=== PATIENT | female | born 1985 | race Hispanic/Latino ===

== ENCOUNTER 2022-06-04 14:04 | Emergency (ER) | payer BC ==
[2022-06-04] MEDS ORDERED: HYDROCODONE/APAP 10/325 TAB ONE (16:01)
--- NOTE | 2022-06-04 16:48 | RAD REPORT ---
EXAM DESCRIPTION: RAD - Foot Left 3 View - 06/04/2022 4:38 pm CLINICAL HISTORY: Pain COMPARISON: No comparisons FINDINGS/IMPRESSION: No acute fracture. No malalignment. No significant focal degenerative changes.
--- NOTE | 2022-06-04 16:50 | ER ---
Nurse's Notes [facility] [place] Name: Barby Rees Age: 36 yrs Sex: Female : 1985 Arrival Date: 06/04/2022 Time: 14:06 Bed DIS3 Private MD: Diagnosis: Contusion of left foot Presentation: 06/04 15:45 Chief complaint: Patient states: Moving cabinets and one fell onto Left foot, stated vg1 weight of cabinet about 60#. Left foot appears to be swollen and bruised. Coronavirus screen: Vaccine status: Patient reports being unvaccinated. Client denies travel out of the [place] in the last 14 days. Ebola Screen: Patient negative for fever greater than or equal to 101.5 degrees Fahrenheit, and additional compatible Ebola Virus Disease symptoms. Initial Sepsis Screen: Does the patient meet any 2 criteria? No. Patient's initial sepsis screen is negative. Does the patient have a suspected source of infection? No. Patient's initial sepsis screen is negative. Risk Assessment: Do you want to hurt yourself or someone else? Patient reports no desire to harm self or others. Onset of symptoms was June 04, 2022. 15:45 Method Of Arrival: Wheelchair vg1 15:45 Acuity: LAINA 4 vg1 Triage Assessment: 15:46 General: Appears uncomfortable, Behavior is cooperative. Pain: Complains of pain in vg1 left foot Pain currently is 7 out of 10 on a pain scale. Pain began 2 hours ago. Musculoskeletal: Capillary refill < 3 seconds, in bilateral toes. Swelling present in left foot. 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 - Social history:: Smoking status: Patient denies any tobacco usage or history of. Screenin:15 Abuse screen: Denies threats or abuse. Denies injuries from another. Nutritional ss screening: No deficits noted. Tuberculosis screening: Never had TB. Fall Risk None identified. Assessment: 17:15 General: Appears in no apparent distress. Pain: Complains of pain in left foot. Neuro: ss Level of Consciousness is awake, alert, obeys commands. Respiratory: Airway is patent Respiratory effort is even, unlabored, Respiratory pattern is regular, symmetrical. Derm: Skin is intact, is healthy with good turgor, Skin is pink, warm \T\ dry. normal. Musculoskeletal: Swelling present in left foot. Vital Signs: 15:45 BP 109 / 71; Pulse 72; Resp 16; Temp 98.2; Pulse Ox 100% ; Weight 81.65 kg; Height 5 vg1 ft. 4 in. (162.56 cm); Pain 7/10; 15:45 Body Mass Index 30.90 (81.65 kg, 162.56 cm) vg1 ED Course: 14:06 Patient arrived in ED. as 15:45 Devon Thornton is PHCP. jl9 15:45 Eduin Dawkins MD is Attending Physician. jl9 15:46 Triage completed. vg1 15:46 Arm band placed on. vg1 16:40 Foot Left 3 View XRAY In Process Unspecified. EDMS 16:53 Ritika Lion, RN is Primary Nurse. ss 17:15 Patient has correct armband on for positive identification. Bed in low position. ss 17:15 No provider procedures requiring assistance completed. Patient did not have IV access ss during this emergency room visit. Administered Medications: 16:03 Drug: Surveyor (HYDROcodone-acetaminophen) 10 mg-325 mg 1 tabs Route: PO; ss Medication: 17:15 VIS not applicable for this client. ss Outcome: 16:50 Discharge ordered by . jl9 17:15 Discharged to home via wheelchair. ss 17:15 Condition: good 17:15 Discharge instructions given to patient. 17:15 Instructed on discharge instructions, follow up and referral plans. medication usage, Demonstrated understanding of instructions, follow-up care, medications, Prescriptions given X 1. 17:51 Patient left the ED. ss Signatures: Dispatcher [employer] EDMS May Crouch Shelby, RN RN ss Alicia Parmar RN RN vg1 Devon Thornton jl9
--- NOTE | 2022-06-04 16:50 | EDPHYS ---
Physician Documentation [facility] Name: Barby Rees Age: 36 yrs Sex: Female : 1985 Arrival Date: 06/04/2022 Time: 14:06 Bed DIS3 Private MD: ED Physician Eduin Dawkins HPI: 06/04 16:46 This 36 yrs old Female presents to ER via Wheelchair with complaints of Crush jl9 Injury To Foot. Patient reports having a cabinet fall onto her foot while moving it. . 16:46 The patient presents with pain, swelling. The complaints affect the left foot. Context: jl9 The problem was sustained at home, resulted from a heavy object falling, the patient can partially bear weight, the patient is able to ambulate. Onset: The symptoms/episode began/occurred just prior to arrival. Modifying factors: The symptoms are alleviated by nothing, the symptoms are aggravated by movement. Associated signs and symptoms: The patient has no apparent associated signs or symptoms. Severity of symptoms: in the emergency department the symptoms a " 5" out of "10". 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 - Social history:: Smoking status: Patient denies any tobacco usage or history of. ROS: 16:47 MS/extremity: Positive for pain, swelling. jl9 16:47 Constitutional: Negative for fever, chills, and weight loss, Eyes: Negative for injury, pain, redness, and discharge, ENT: Negative for injury, pain, and discharge, Neck: Negative for injury, pain, and swelling, Cardiovascular: Negative for chest pain, palpitations, and edema, Respiratory: Negative for shortness of breath, cough, wheezing, and pleuritic chest pain, Abdomen/GI: Negative for abdominal pain, nausea, vomiting, diarrhea, and constipation, Back: Negative for injury and pain, : Negative for injury, bleeding, discharge, and swelling, Skin: Negative for injury, rash, and discoloration, Neuro: Negative for headache, weakness, numbness, tingling, and seizure, Psych: Negative for depression, anxiety, suicide ideation, homicidal ideation, and hallucinations, Allergy/Immunology: Negative for hives, rash, and allergies, Endocrine: Negative for neck swelling, polydipsia, polyuria, polyphagia, and marked weight changes, Hematologic/Lymphatic: Negative for swollen nodes, abnormal bleeding, and unusual bruising. Exam: 16:48 Constitutional: This is a well developed, well nourished patient who is awake, alert, jl9 and in no acute distress. Head/Face: Normocephalic, atraumatic. Eyes: Pupils equal round and reactive to light, extra-ocular motions intact. Lids and lashes normal. Conjunctiva and sclera are non-icteric and not injected. Cornea within normal limits. Periorbital areas with no swelling, redness, or edema. ENT: Mucous membranes moist. Neck: Trachea midline, no thyromegaly or masses palpated, and no cervical lymphadenopathy. Supple, full range of motion without nuchal rigidity, or vertebral point tenderness. No Meningismus. Chest/axilla: Normal chest wall appearance and motion. Nontender with no deformity. No lesions are appreciated. Cardiovascular: Regular rate and rhythm with a normal S1 and S2. No gallops, murmurs, or rubs. Normal PMI, no JVD. No pulse deficits. Respiratory: Lungs have equal breath sounds bilaterally, clear to auscultation and percussion. No rales, rhonchi or wheezes noted. No increased work of breathing, no retractions or nasal flaring. Abdomen/GI: Soft, non-tender, with normal bowel sounds. No distension or tympany. No guarding or rebound. No evidence of tenderness throughout. Back: No spinal tenderness. No costovertebral tenderness. Full range of motion. Skin: Warm, dry with normal turgor. Normal color with no rashes, no lesions, and no evidence of cellulitis. 16:48 Neuro: Awake and alert, GCS 15, oriented to person, place, time, and situation. Cranial nerves II-XII grossly intact. Motor strength 5/5 in all extremities. Sensory grossly intact. Cerebellar exam normal. Normal gait. Psych: Awake, alert, with orientation to person, place and time. Behavior, mood, and affect are within normal limits. 16:48 Musculoskeletal/extremity: Extremities: grossly normal except: pain, ROM: limited active range of motion due to pain, Circulation is intact in all extremities. Sensation intact. Compartment Syndrome exam of affected extremity: is normal. Vital Signs: 15:45 BP 109 / 71; Pulse 72; Resp 16; Temp 98.2; Pulse Ox 100% ; Weight 81.65 kg; Height 5 vg1 ft. 4 in. (162.56 cm); Pain 7/10; 15:45 Body Mass Index 30.90 (81.65 kg, 162.56 cm) vg1 MDM: 15:55 Patient medically screened. jl9 16:48 Data reviewed: vital signs, nurses notes. jl9 16:49 Differential diagnosis: fracture, sprain. Counseling: I had a detailed discussion with jl9 the patient and/or guardian regarding: the historical points, exam findings, and any diagnostic results supporting the discharge/admit diagnosis, radiology results, the need for outpatient follow up, to return to the emergency department if symptoms worsen or persist or if there are any questions or concerns that arise at home. Response to treatment: the patient's symptoms have markedly improved after treatment. 06/04 15:48 Order name: Foot Left 3 View XRAY; Complete Time: 16:49 vg1 06/04 16:49 Order name: Post-op Orthopedic Shoe jl9 Administered Medications: 16:03 Drug: Dixie (HYDROcodone-acetaminophen) 10 mg-325 mg 1 tabs Route: PO; ss Disposition Summary: 06/04/22 16:50 Discharge Ordered Location: Home jl9 Condition: Stable jl9 Diagnosis - Contusion of left foot jl9 Followup: jl9 - With: Private Physician - When: 1 - 2 days - Reason: Recheck today's complaints, Continuance of care, Re-evaluation by your physician Discharge Instructions: - Discharge Summary Sheet jl9 - Crush Injury of the Foot, [id number] jl9 Forms: - Medication Reconciliation Form jl9 - Thank You Letter jl9 - Antibiotic Education jl9 - Prescription Opioid Use jl9 Prescriptions: - Tramadol 50 mg Oral Tablet - take 1 tablet by ORAL route every 8 hours as needed; 12 tablet; Refills: 0, jl9 Product Selection Permitted Addendum: 06/06/2022 13:37 Co-signature as Attending Physician, Eduin Dawkins MD I agree with the assessment and c brewster plan of care. Signatures: Dispatcher [employer] Eduin Staples MD MD cha Smirch, Shelby RN RN Alicia Morin RN RN Devon Mayen jl9
[2022-06-04 17:55] VITALS: BP 109/71; TEMP 98.2; O2SAT 100
== END 2022-06-04 17:51 | disposition home or self-care (01) ==
LOC: ER 14:04
DX: S90.32XA Contusion of left foot, initial encounter (principal); W23.0XXA Caught, crushed, jammed, or pinched between moving objects, initial encounter
CPT/HCPCS: 99283